=== PATIENT | female | born 1985 | race African-American/Black ===

== ENCOUNTER 2016-05-12 12:12 | Emergency (ER) | payer MEDICAID | END 2016-05-12 14:48 | disposition home or self-care (01) | LOC: ER 12:12 | DX: L02.811 Cutaneous abscess of head [any part, except face] (principal); F17.200 Nicotine dependence, unspecified, uncomplicated ==

== ENCOUNTER 2016-05-17 12:48 | Emergency (ER) | payer MEDICAID | END 2016-05-17 15:04 | disposition home or self-care (01) | LOC: ER 12:48 | DX: L72.3 Sebaceous cyst (principal); G40.909 Epilepsy, unspecified, not intractable, without status epilepticus ==